=== PATIENT | female | born 1995 | race Caucasian/White ===

== ENCOUNTER 2017-04-21 21:03 | Emergency (ER) | payer BC ==
[~2017-04-21] VITALS: Ht 165.1 cm; Wt 69.4 kg
[~2017-04-21 21:03] MED LIST: VICODIN 5-3001 EACH PO
[2017-04-21 22:24] LABS: MCH 28.8 PG (29.0-34.0); MCHC 33.9 G/DL (30.0-36.0); MCV 85.1 FL (83-99); PLATELET COUNT 230 K/uL (156-360); RBC DIS.WIDTH-CV 11.6 % (11.8-14.6); RBC DIS.WIDTH-SD 35.5 % (39-53); RED BLOOD COUNT 4.82 M/uL (3.80-5.20); WHITE BLOOD COUNT 9.4 K/uL (4.1-10.2)
[2017-04-21 22:35] LABS: CHLORIDE 101 mEq/L (99-109); POTASSIUM 3.7 mEq/L (3.7-5.4); SODIUM 137 mEq/L (136-147)
[2017-04-21 22:37] LABS: GLUCOSE 98 mg/dL (70-99)
[2017-04-21 22:38] LABS: ANION GAP 11 MEQ/L (2-14)
[2017-04-21 22:41] LABS: GFR ESTIMATE (CALCULATED) > 59 mL/min/
[2017-04-21 22:42] LABS: UREA NITROGEN (BUN) 11 mg/dL (9-23)
[2017-04-21 22:50] LABS: QUANTITATIVE HCG < 4.0 MIU/ML
[2017-04-21 23:00] LABS: ADD MIUA? YES; BILIRUBIN NEGATIVE; BLOOD SMALL; COLOR STRAW ((YELLOW)); GLUCOSE (STRIP) NEGATIVE; KETONES NEGATIVE; LEUKOCYTES SMALL; NITRITE NEGATIVE; PROTEIN (STRIP) NEGATIVE; SPECIFIC GRAVITY 1.006 (1.000-1.030); UROBILINOGEN 0.2 MG/DL (0.2-1.0)
[2017-04-21 23:16] LABS: BACTERIA NONE SEEN /HPF; EPITHELIAL CELLS 1+ /HPF; MUCUS TRACE /LPF; RED BLOOD CELLS 0-5 /HPF (0-5)
[2017-04-21] MEDS ORDERED: MACROBID100 MG PO (23:54)
[2017-04-21] MEDS ORDERED: FLEXERIL10 MG PO (23:54)
[2017-04-22] MEDS ORDERED: BLISOVI 24 FE1 EACH PO (00:16)
[2017-04-22 00:21] VITALS: BP 117/65
== END 2017-04-22 00:24 | disposition home or self-care (01) ==
LOC: EME 21:03 → RME 21:03
PROVIDERS: Nurse Practitioner Family
DX: N39.0 Urinary tract infection, site not specified (principal)
CPT/HCPCS: 80048; 81003; 84702; 85027; 99281; 99284